=== PATIENT | female | born 1980 | race Hispanic/Latino ===

== ENCOUNTER 2018-01-28 14:34 | Outpatient (CLI) | payer OTHER | END 2018-01-28 14:35 | disposition home or self-care (01) | LOC: DTY/OP 14:34 | PROVIDERS: ATTEND Obstetrics & Gynecology | DX: O24.419 Gestational diabetes mellitus in pregnancy, unspecified control (principal); Z71.3 Dietary counseling and surveillance; Z3A.00 Weeks of gestation of pregnancy not specified | CPT/HCPCS: 97802 ==